=== PATIENT | female | born 1955 | race Caucasian/White ===

== ENCOUNTER → 2017-11-05 | Outpatient (CLI) | payer OTHER ==
[~2017-11-05] MED LIST: ASPI81TA82 PO; IOHEXOL 350 MG/ML 10 ML VIAL (for RAD DIAG) IVCONTRAST ONE; MACR100C PO
--- NOTE | 2017-11-05 15:27 | RADRPT ---
EXAM DATE/TIME: 11/05/2017 14:48 [facility] COMPARISON: No previous studies available for comparison. INDICATIONS : Lower pelvic pain,recent pelvic reconstruction IV CONTRAST: 90 cc Omnipaque 350 (iohexol) IV ORAL CONTRAST: Prescribed oral contrast ingested. RADIATION DOSE: 7.5 CTDIvol (mGy) MEDICAL HISTORY : None SURGICAL HISTORY : Cholecystectomy. Hysterectomy.Pelvic reconstruction,back surgery ENCOUNTER: Initial ACUITY: 1 month PAIN SCALE: 3/10 LOCATION: Abdomen TECHNIQUE: Volumetric scanning of the abdomen and pelvis was performed. Using automated exposure control and ad justment of the mA and/or kV according to patient size, radiation dose was kept as low as reasonably achievable to obtain optimal diagnostic quality images. DICOM format image data is available electro nically for review and comparison. FINDINGS: LOWER LUNGS: There is a calcified granuloma in the right lower lobe. LIVER: Homogeneous density without lesion. There is no dilation of the biliary tree. Patient is post kirit cystectomy clips in the gallbladder fossa. SPLEEN: Normal size without lesion. PANCREAS: Within normal limits. KIDNEYS: Normal in size and shape. There is no mass, stone or hydronephrosis. There are renal sinus cysts mars aterally. ADRENAL GLANDS: Within normal limits. VASCULAR: There is no aortic aneurysm. There is mild atherosclerotic disease. BOWEL/MESENTERY: The stomach, small bowel, and colon demonstrate no acute abnormality. There is no free intraperitone al air or fluid. A small hiatal hernia is present. ABDOMINAL WALL: Within normal limits. RETROPERITONEUM: There is no lymphadenopathy. BLADDER: No wall thickening or mass. REPRODUCTIVE: Uterus is absent. Vagina has a normal appearance. No adnexal abnormality is seen. INGUINAL: There is no lymphadenopathy or hernia. MUSCULOSKELETAL: There are mild degenerative changes of the lumbar spine. CONCLUSION: 1. No abnormality is identified to explain the pelvic pain. No acute finding is identified. 2. Nonacute findings include small hiatal hernia and mild atherosclerotic disease. Chavez Braden MD on November 05, 2017 at 15:11 Board Certified Radiologist. This report was verified electronically.
== END ==
LOC: HRAD 13:02
PROVIDERS: ATTEND Obstetrics & Gynecology
DX: R10.2 Pelvic and perineal pain (principal)
CPT/HCPCS: 74177; Q9967

== ENCOUNTER → 2017-12-16 | Outpatient (CLI) | payer OTHER ==
[~2017-12-16] MED LIST changes: -IOHEXOL 350 MG/ML 10 ML VIAL (for RAD DIAG) IVCONTRAST ONE
--- NOTE | 2017-12-16 13:20 | RADRPT ---
EXAM DATE/TIME: 12/16/2017 12:51 [facility] COMPARISON: No previous studies available for comparison. INDICATIONS : Fall, left medial knee pain. MEDICAL HISTORY : None. SURGICAL HISTORY : None. 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 There is no acute fracture or dislocation. No knee joint effusion is noted. CONCLUSION: 1. Mild left arthritis involving the patellofemoral and femorotibial joints. 2. No acute fracture or dislocation. En Nunez MD on December 16, 2017 at 13:17 Board Certified Radiologist. This report was verified electronically.
== END ==
LOC: HRAD 12:31
PROVIDERS: ATTEND Family Medicine
DX: M25.562 Pain in left knee (principal)
CPT/HCPCS: 73562